=== PATIENT | female | born 1995 | race American Indian/Alaskan Native ===

== ENCOUNTER 2019-07-20 10:55 | Emergency (ER) | payer BC ==
[2019-07-20 11:24] LABS: Basophils % (Auto) 0.8 % (0.0-1.8); Eosinophils # (Auto) 0.1 K/mm3 (0.0-0.4); Eosinophils % (Auto) 1.6 % (0.0-4.3); Hematocrit 39.2 % (30.3-42.9); Hemoglobin 13.2 gm/dl (10.1-14.3); Lymphocytes # (Auto) 2.8 K/mm3 (1.2-5.4); Lymphocytes % (Auto) 47.6 % (13.4-35.0); Mean Corpuscular HGB Conc 34 % (30-34); Mean Corpuscular Volume 81 fl (79-97); Monocytes # (Auto) 0.6 K/mm3 (0.0-0.8); Monocytes % (Auto) 10.6 % (0.0-7.3); Platelet Count 265 K/mm3 (140-440); Red Blood Count 4.86 M/mm3 (3.65-5.03); Red Cell Distribution Width 13.5 % (13.2-15.2)
[2019-07-20 11:49] LABS: Bacteria,Urine 1+ /HPF (Negative); Bilirubin,Urine NEG (Negative); Blood,Urine LG (Negative); Color,Urine Yellow (Yellow); Mucus,Urine 2+ /HPF; Protein,Urine <15 mg/dL mg/dL (Negative); Urobilinogen,Urine < 2.0 mg/dL (<2.0)
--- NOTE | 2019-07-20 12:51 | Emergency Department Report ---
ED Female HPI - General Chief complaint: Vaginal Bleeding Stated complaint: POSS MISCARRIAGE Time Seen by Provider: 07/20/19 12:18 Source: patient Mode of arrival: Ambulatory Limitations: No Limitations - History of Present Illness Initial comments: Reports that she took a home test which was positive. Complaint: vaginal bleeding -: Gradual Radiation: non-radiating Severity: mild Severity scale (0 -10): 1 Consistency: intermittent Improves with: none Worsens with: none Are you Now?: Yes Associated Symptoms: denies: vaginal discharge, abdominal pain, fever/chills, headaches, loss of appetite, dysuria, hematuria, rash, seizure, shortness of breath, syncope, weakness - Related Data Allergies Allergy/AdvReac Type Severity Reaction Status Date / Time No Known Allergies Allergy Unverified 07/20/19 10:57 ED Review of Systems ROS: Stated complaint: POSS MISCARRIAGE Other details as noted in HPI Other: GENERAL: No weight change, fatigue, fever, chills, or night sweats SKIN: No changes in skin or hair, no itching, no rashes, no jaundice HEAD: No trauma, headache, or visual changes EYES: No blurriness, tearing, itching, acute visual loss, conjunctival disc oloration, or scleral icterus EARS: No hearing loss, tinnitus, vertigo, or earache NOSE: No rhinorrhea, stuffiness, sneezing, itching, or epistaxis MOUTH: No bleeding gums, hoarseness, sore throat, or swelling CARDIAC: No new murmur, chest pain, palpitations, dyspnea on exertion, orthopnea, PND, or edema RESPIRATORY: No shortness of breath, wheeze, cough, sputum production, hemoptysis, pneumonia, asthma, bronchitis, or emphysema GI: No change in appetite, nausea, vomiting, dysphagia, diarrhea, constipation, hematemesis, melena, hematochezia, or abdominal pain URINARY: No frequency, urgency, polyuria, dysuria, hematuria, or incontinence MUSCULOSKELETAL: No muscle weakness, joint stiffness, decrease in range of motion, redness, swelling NEUROLOGIC: No headache, loss of sensation, numbness, tingling, tremors, weakness, paralysis, seizures HEMATOLOGIC: No anemia, easy bruising, bleeding, petechiae, or purpura ENDOCRINE: No hot or cold intolerance, sweating, polyuria, polydipsia or, polyp hagia no thyroid problems PSYCHIATRIC: No change in mood, no anxiety, no depression GENITAL: Female: Vaginal bleeding. No dishcarge, dysmenorrhea ED Past Medical Hx - Past Medical History Previous Medical History?: No - Surgical History Past Surgical History?: No - Social History Smoking Status: Never Smoker Substance Use Type: None ED Physical Exam - General Limitations: No Limitations - Other Other exam information: GENERAL: Patient in no acute distress HEAD: Normocephalic, atraumatic EYES: PERRLA, EOM intact, no scleral icterus, no conjunctival hemorrhage, visual hamilton and acuity wnl NOSE: No tenderness, discharge, sinus tenderness MOUTH: No erythema, bleeding, exudate HEART: Regular rate and rhythm, no murmur, S1-S2 are auscultated, pulses are symmetric LUNGS: Bilateral breath sounds, No tachypnea, No retractions, No wheezing, rales, rhonchi ABDOMEN: Normal bowel sounds, abdomen soft, no tenderness, no rebound, no guarding, no distention, no masses, no CVA tenderness MUSCULOSKELETAL: Normal joint range of motion, no redness, no swelling, no tenderness NEUROLOGIC: GCS 15, Alert and Oriented x3, Cranial nerves intact, normal sensation, normal strength, normal gait, no cerebellar deficit, NIHSS 0 PSYCHIATRIC: No homicidal or suicidal ideation, no anxiety, no depression, no hallucinations SKIN: Skin is warm and dry, no wounds, no rashes ED Course Vital Signs 07/20/19 07/20/19 11:00 13:30 Temperature 98.5 F 98.0 F Pulse Rate 115 H 80 Respiratory 16 18 Rate Blood Pressure 141/93 Blood Pressure 128/78 [Left] O2 Sat by Pulse 99 100 Oximetry ED Medical Decision Making - Lab Data Result diagrams: 07/20/19 11:13 Laboratory Last Values WBC 5.9 K/mm3 (4.5-11.0) 07/20/19 11:13 RBC 4.86 M/mm3 (3.65-5.03) 07/20/19 11:13 Hgb 13.2 gm/dl (10.1-14.3) 07/20/19 11:13 Hct 39.2 % (30.3-42.9) 07/20/19 11:13 MCV 81 fl (79-97) 07/20/19 11:13 MCH 27 pg (28-32) L 07/20/19 11:13 MCHC 34 % (30-34) 07/20/19 11:13 RDW 13.5 % (13.2-15.2) 07/20/19 11:13 Plt Count 265 K/mm3 (140-440) 07/20/19 11:13 Lymph % (Auto) 47.6 % (13.4-35.0) H 07/20/19 11:13 [place] % (Auto) 10.6 % (0.0-7.3) H 07/20/19 11:13 Eos % (Auto) 1.6 % (0.0-4.3) 07/20/19 11:13 Baso % (Auto) 0.8 % (0.0-1.8) 07/20/19 11:13 Lymph # 2.8 K/mm3 (1.2-5.4) 07/20/19 11:13 [place] # 0.6 K/mm3 (0.0-0.8) 07/20/19 11:13 Eos # 0.1 K/mm3 (0.0-0.4) 07/20/19 11:13 Baso # 0.0 K/mm3 (0.0-0.1) 07/20/19 11:13 Seg Neutrophils % 39.4 % (40.0-70.0) L 07/20/19 11:13 Seg Neutrophils # 2.3 K/mm3 (1.8-7.7) 07/20/19 11:13 HCG, Quant 2.71 mIU/mL (0-4) 07/20/19 11:13 Yellow (Yellow) 07/20/19 Unknown Clear (Clear) 07/20/19 Unknown 5.0 (5.0-7.0) 07/20/19 Unknown Ur Specific [place] 1.025 (1.003-1.030) 07/20/19 Unknown <15 mg/dl mg/dL (Negative) 07/20/19 Unknown Neg mg/dL (Negative) 07/20/19 Unknown Neg mg/dL (Negative) 07/20/19 Unknown Lg (Negative) 07/20/19 Unknown Neg (Negative) 07/20/19 Unknown Neg (Negative) 07/20/19 Unknown < 2.0 mg/dL (<2.0) 07/20/19 Unknown Ur Leukocyte Esterase Neg (Negative) 07/20/19 Unknown 2.0 /HPF (0.0-6.0) 07/20/19 Unknown 5.0 /HPF (0.0-6.0) 07/20/19 Unknown U Epithel Cells (Auto) 1.0 /HPF (0-13.0) 07/20/19 Unknown 1+ /HPF (Negative) 07/20/19 Unknown 2+ /HPF 07/20/19 Unknown Blood Type O NEGATIVE 07/20/19 11:13 - Medical Decision Making Patient comfortable. Updated with results. Patient agrees to outpatient OB follow up for repeat quant testing. Plan discharge with outpatient follow up. Agrees to return if any worsening. Critical care attestation.: If time is entered above; I have spent that time in minutes in the direct care of this critically ill patient, excluding procedure time. ED Disposition Clinical Impression: Threatened miscarriage Disposition: DC-01 TO HOME OR SELFCARE Is pt being admited?: No Condition: Stable Instructions: Threatened Miscarriage (ED) Referrals: AKASH COFFMAN MD [Primary Care Provider] - 2-3 Days JOEY JUAREZ MD [Staff Physician] - 2-3 Days Time of Disposition: 12:51
[2019-07-20 13:31] VITALS: BP 128/78
== END 2019-07-20 13:31 | disposition home or self-care (01) ==
LOC: ED 10:55
DX: O20.0 Threatened abortion (principal); Z3A.01 Less than 8 weeks gestation of pregnancy
CPT/HCPCS: 36415; 81001; 84702; 85025; 86900; 86901; 99283